=== PATIENT | male | born 1975 | race Caucasian/White ===

== ENCOUNTER 2018-11-09 14:21 | Outpatient (CLI) | payer MEDICAID, SELFPAY ==
[2018-11-10 12:40] LABS: SS-A Antibody 1.4 Units (<20); SS-B (La) Ab, IgG 2.1 Units (<20)
[2018-11-10 14:25] LABS: ANA Interpretation Negative (NEGAT)
== END 2018-11-09 14:41 ==
PROVIDERS: Visit Provider Dermatology
DX: R21 Rash and other nonspecific skin eruption (principal)
CPT/HCPCS: 36415; 86038; 86235

== ENCOUNTER 2020-08-09 04:51 | Outpatient (CLI) | payer MEDICAID, SELFPAY ==
--- NOTE | 2020-08-09 | DI.RAD_ITS ---
Exam(s) XR LUMBAR SPINE COMPLETE EXAM: XR LUMBAR SPINE COMPLETE CLINICAL HISTORY: LOW BACK PAIN, M54.5. TECHNIQUE: 2D digital imaging was performed. COMPARISON: No exams were available for comparison FINDINGS: There are 5 lumbar type vertebral bodies. There is normal alignment. There is no spondylolysis or s pondylolisthesis. The disc heights are well maintained. There are small endplate osteophytes from L 3-4 through L5-S1. There are degenerative changes of the facets at L4-5 and L5-S1. No acute fractur e or subluxation is seen. The bones are normally mineralized. IMPRESSION: Mild degenerative changes in the lumbar spine. DATA REPOSITORY: RADIATION DOSE DELIVERED:
== END 2020-08-09 05:11 ==
PROVIDERS: PCP Physician Assistant; Visit Provider Physician Assistant
DX: M54.5 Low back pain (principal); M47.897 Other spondylosis, lumbosacral region
CPT/HCPCS: 72110

== ENCOUNTER 2021-01-10 16:40 | Outpatient (REF) | payer MEDICAID, SELFPAY ==
[2021-01-10 19:27] LABS: HCT 40.8 % (40.0-50.0); HGB 13.6 g/dL (13.5-17.5); MCH 30.6 pg (27.0-33.0); MCHC 33.3 % (32.0-36.0); MCV 91.9 fL (80-95); MPV 12.3 fL (8.0-11.0); Platelet Count 236 10^3/uL (130-400); RBC 4.44 10^6/uL (4.36-5.78); RDW 13.7 % (11.8-14.1); RDW-SD 46.7 fL; WBC 12.38 10^3/uL (4.4-10.8)
[2021-01-10 19:40] LABS: ALT 35 U/L (16-63); AST 32 U/L (15-37); Alkaline Phosphatase 92 U/L (46-116); BUN 17 mg/dL (7-18); Bilirubin, Total 0.4 mg/dL (0.2-1.0); CREATININE 0.9 mg/dL (0.70-1.30); Calcium 9.1 mg/dL (8.5-10.1); Calculated LDL 82 mg/dL (<100); Chloride 103 mmol/L (98-107); Cholesterol 145 mg/dL (<200); Glucose 92 mg/dL (74-106); HDL Cholesterol 43 mg/dL (40-60); Sodium 137 mmol/L (136-145); Total Protein 7.1 g/dL (6.4-8.2); Triglyceride 102 mg/dL (<150)
== END 2021-01-10 16:41 | disposition home or self-care (01) ==
LOC: NCHCN 16:40
PROVIDERS: PCP Physician Assistant; Visit Provider Physician Assistant
DX: I10 Essential (primary) hypertension (principal)
CPT/HCPCS: 80053; 80061; 85027

== ENCOUNTER 2022-02-09 11:30 | Emergency (ER) | payer MEDICAID, SELFPAY ==
[2022-02-09 11:36] VITALS: BP 150/78; PULSE 79; RESP 18; TEMP 36.7; O2SAT 98
--- NOTE | 2022-02-09 12:15 | DI.CT_ITS ---
Exam(s) CT HEAD WO EXAM: CT HEAD WO CLINICAL HISTORY: headache. TECHNIQUE: Imaging Protocol: Axial computed tomography images with coronal and sagittal reformatted images were created and reviewed COMPARISON: CT FACIAL WITHOUT CONTRAST from 07/09/2017 FINDINGS: There are no skull fractures. There is no fluid in the visualized paranasal sinuses. There is no evidence of intracranial hemorrhage, mass effect, or shift of midline structures. There are no extra-axial fluid collections. The ventricles are not enlarged or shifted and there is no blo od within the ventricular system nor within the basal cisterns. There is no evidence of cerebellar tonsillar ectopia. IMPRESSION: No acute intracranial findings on this noninfused CT scan of the brain. RADIATION DOSE DELIVERED: 734.78mGy.cm Total DLP DATA REPOSITORY: All CT scans at this facility are submitted to the National Radiology Data Registry (NRDR) Dose Index Registry (DIR) with the [employer] (A[employer]). RADIATION OPTIMIZATION: All CT scans at this facility use at least one of these dose optimization te chniques: automated exposure control; mA and/or kV adjustment per patient size (includes targeted exa ms where dose is matched to clinical indication); or iterative reconstruction.
[2022-02-09] MEDS: SUMAtriptan 6 MG/0.5 ML VIAL SC (12:41)
--- NOTE | 2022-02-09 12:54 | ED.GENADUL_ITS ---
Discharge Plan Disposition Patient Disposition: HOME Condition: Stable Discharge Details Clinical Impression: Headache Primary Care Provider: John Holloway ED Provider: Marbella Rodriguez Home Meds and New Rx's Prescriptions: New prochlorperazine maleate [Compazine] 10 mg tablet 10 mg PO Q6H PRNQty: 10 0RF Rx Instructions: as needed for headache Continued buprenorphine-naloxone [Suboxone] 2-0.5 mg film 1 film sublingual UNKNOWN Discharge Instructions Instructions: General Headache (ED) Additional Instructions: Try taking your migraine medication should you develop headache, you may take the Reglan as needed for pain Tylenol and ibuprofen head ct within normal limits Follow-up with neurology, referral placed Return earlier should you have new or worsening complaint Referrals: John Holloway [Primary Care Provider] - 1 day Discharge Data Discharge Date/Time-TO BE ENTERED AT DEPARTURE: 02/09/22 14:06 Medical Decision Making Patient appears well, CT does not show evidence of acute abnormality, given subcutaneous Imitrex with complete resolution of headache Discharged home with ibuprofen and Tylenol Return precautions discussed Neurology referral supplied Neurologically intact with stable vitals at time of discharge Medical Records Medical records reviewed: Yes I reviewed the patient's medical records. Lab Data Lab results reviewed: Yes I reviewed the patient's lab results. HPI General Date/Time Provider Initiated Documentation: 02/09/22 11:46 . HPI Narrative: This 46-year-old male presents with report of headache for the past 3 days. Frontal. He has had history of headaches similar to this but never to this extent. He states usually they last approximately 24 hours. He took Excedrin Migraine which did not help with symptoms. He denies risk of carbon monoxide exposure. Denies fever chills. Denies strength or sensation change. Denies For fever. Denies any head trauma. Denies any vision change. He also complains of right-sided ache. Related Data Home Medications Medication Instructions Recorded Confirmed buprenorphine 2 mg-naloxone 0.5 mg 1 film sublingual UNKNOWN 02/09/22 02/09/22 sublingual film (Suboxone) prochlorperazine maleate 10 mg 10 mg PO Q6H PRN #10 tabs 02/09/22 tablet (Compazine) Previous Rx's Medication Instructions Recorded prochlorperazine maleate 10 mg 10 mg PO Q6H PRN #10 tabs 02/09/22 tablet (Compazine) Allergies Allergy/AdvReac Type Severity Reaction Status Date / Time Opioids - Morphine Analogues AdvReac Other (See Unverified 07/09/17 20:07 Comment) General Stated Complaint: Headache JOAQUIN: 3 Review of Systems All systems reviewed & are unremarkable except as noted in HPI and below PFSH All Active Problems (Updated 02/09/22 @ 13:43 by JAMIE Diaz) Headache (Acute) Social History Smoking/Tobacco Use Status: Current every day Tobacco Type: cigarettes Smoking risk assessment performed?: Yes Alcohol Intake: never Drug use: Never Substance use type: does not use Exam Const General: cooperative and comfortable Orientation: alert and oriented x3 Eyes Pupils: PERRL EOM: EOM intact bilaterally Neck Other: No carotid bruit No meningismus Resp Effort & Inspection: normal respiratory effort Auscultation: clear to auscultation bilaterally Cardio Rate: regular rate Rhythm: regular rhythm Neuro General: patient alert and patient oriented x3 Cranial Nerves: tongue midline Gait: normal gait Motor: strength 5/5 throughout Course Vital Signs Vital signs: Vital Signs Temperature 36.7 C 02/09/22 11:36 Pulse 79 02/09/22 11:36 Respiratory Rate 18 02/09/22 11:36 Blood Pressure 150/78 H 02/09/22 11:36 Pulse Oximetry 98 02/09/22 11:36 Temperature 36.7 C 02/09/22 11:36 Temperature Source Oral 02/09/22 11:36 Pulse 79 02/09/22 11:36 Respiratory Rate 18 02/09/22 11:36 Respiratory Effort Non-Labored 02/09/22 11:38 Blood Pressure 150/78 H 02/09/22 11:36 Blood Pressure Position Sitting 02/09/22 11:36 Pulse Oximetry 98 02/09/22 11:36 Oxygen Delivery Method Room Air 02/09/22 11:36 Oxygen Flow Rate 0 02/09/22 11:36 Pain Level 7 02/09/22 12:41
== END 2022-02-09 14:06 | disposition home or self-care (01) ==
PROVIDERS: Emergency Provider Physician Assistant; PCP Physician Assistant
DX: R51.9 Headache, unspecified (principal)
CPT/HCPCS: 96372; 99284; 70450; 99283

== ENCOUNTER 2022-10-02 09:50 | Day surgery (SDC) | payer OTHER, SELFPAY ==
[2022-10-02] VITALS (12 sets, daily range): BP systolic 74–137; BP diastolic 33–89; PULSE 64–83; RESP 12–21; TEMP 36.2–36.8; O2SAT 92–97; BMI 33.8
--- NOTE | 2022-10-02 07:20 | W.PM.DSUDISC ---
Date of service: 10/02/22 Time of Service: 15:00 Discharge Plan Disposition Patient Disposition: Home Discharge Details Attending Provider: Duncan Winchester Primary Care Provider: John Holloway Home Meds and New Rx's Prescriptions: New aspirin 81 mg tablet,delayed release (DR/EC) 81 mg PO DAILY 7 Days Qty: 7 0RF naproxen 250 mg tablet 250 - 500 mg PO BID PRNQty: 40 0RF Rx Instructions: take with a meal tramadol 50 mg tablet 50 mg PO Q6H PRN (Reason: severe pain) Qty: 12 0RF Continued acetaminophen 500 mg capsule 500 mg PO Q6H PRN Discontinued sumatriptan succinate [Imitrex] 50 mg tablet See Rx Instructions PO .COMPLEX Rx Instructions: take 1 tab at onset of headache; if no relief may repeat 1 tab after at least 2 hrs; max = 4 tabs/24 hr PO ibuprofen 800 mg tablet 800 mg PO TID Discharge Instructions Additional Instructions: Surgery: Left shoulder arthroscopy with biceps tenodesis, extensive debridement, and subacromial decompression. Partial articular supraspinatus rotator cuff tear. Activity: You should gradually increase range of motion motion and use of your shoulder. You may use your shoulder for all regular activities while protecting biceps repair. Avoid any weighted elbow flexion or resisted supination for 6-8 weeks. No heavy lifting, reaching overhead, or lifting away from body for approximately 2-3 months. You may use the sling whenever you are out of the house for a few weeks. At home it is best to remove the sling and rest the arm on a pillow at your side or support the operative side with your other hand. A physical therapy prescription will be sent electronically to start in about 3 weeks. Prescriptions: Aspirin 81 mg take 1 daily to prevent a blood clot for 7 days Naproxen 250 mg take 1-2 every 12 hours with a meal as needed for moderate pain Tramadol 50 mg take 1 every 6-8 hours as needed for severe pain You may use bktf-xfe-rtckked Tylenol (acetaminophen) as needed for mild pain. These pain medications may be taken all at once or in different combinations as needed. Also, recommend Colace (docusate) as a stool softener as surgery and pain medicine cause constipation. You may try veln-iqa-euwnboq diphenhydramine (Benadryl) 25-50 mg nightly as a sleep aid Dressings: Remove shoulder bandage after 3 days. Leave the sticky Steri-Strips in place until they fall off or remove them after you shower. Cover the incisions with Band-Aids or leave them open to air. You may shower after 5 days. Follow-up: 10-[address] Winchester You may take off the leg compression stockings this evening at home. You may also leave them on a few days longer if you have a history of leg swelling or edema. Let us know right away if you develop any redness, drainage, fevers, chest pain, or trouble breathing. Do not drink alcohol or drive for at least 24 hours after anesthesia. Please call the office during business hours with any questions or concerns. Discharge Orders Discharge Orders: Discharge Order (Routine); Ordered 10/02/22 Ordered By: Duncan Winchester DS: Diagnosis Discharge Diagnosis (1) Left rotator cuff tear: Status: Acute
--- NOTE | 2022-10-02 07:21 | ROE_ITS ---
Date of service: 10/02/22 Time of Service: 13:00 Operative Note Operative Note DATE OF PROCEDURE: 10/02/22 PRE-OP DIAGNOSIS: Left: 1. Rotator cuff tear 2. SLAP tear 3. ACJ arthritis 4. Impingement POST-OP DIAGNOSIS: same PROCEDURE: Left: 1. Arthroscopic distal clavicle excision, CPT# 42182. This involved arthroscopically exposing the underside of the acromioclavicular joint, smoothi ng out bone spurs, and removing a few millimeters of the distal clavicle so there was no bone left engaging the acromion. 2. Arthroscopic biceps tenodesis, CPT# 99123. This involved arthroscopically s uturing and reattaching the long head of the biceps tendon to the proximal humerus at the superior margin of the bicipital groove with a screw at the correct tension. 3. Extensive debridement, CPT# 71342. This involved using arthroscopic hand instruments, power instruments, and radiofrequency instruments to release the long head of the biceps tendon and debride areas of Mohit complex/[facility] L and po sterior labral tearing, SLAP tearing, rotator interval synovitis, partial articular supraspinatus tearing, and chondromalacia about the humeral head. 4. Subacromial decompression with partial acromioplasty, CPT# 96102. This involved using arthroscopic power instruments and a radiofrequency wand to complete a bursectomy and smooth the undersurface of the acromion. The assistant research scientist was medically required in order to help assist in techniques above, which require positioning the arm, holding the arthroscope, and manipulating multiple instruments and sutures at the same time. This cannot be done without the help of an experienced assistant research scientist. SURGEON: Duncan Winchester FUND CONTROLLER: Dominique Padilla ANESTHESIA TYPE: General LMA/ETT and Primary Nerve Block Refer to Anesthesia Record ESTIMATED BLOOD LOSS: 10 PATHOLOGY: none sent COMPLICATIONS: None Patient was transported to: PACU Patient's condition: stable Implants: Arthrex: 4.75mm SwiveLocks x 1 Indications: The patient was diagnosed with the above conditions and appropriately indicated for surgical intervention. Please see complete medical record for details. Findings: Exam under anesthesia: Moderately full range of motion, no instability Glenohumeral joint: Surgically intact Long has biceps tendon, but unstable biceps anchor which communicated with an obvious Mohit complex anteriorly and continued with posterior labral fraying tearing. Mild to moderate grade partial articular supraspinatus tearing without any significant footprint uncovering. Intact subscapularis. Mild central humeral head chondromalacia Subacromial space: Significant bursitis. Impinging undersurface distal clavicle hypertrophic on the rotator cuff and against the medial acromion. Mild undersurface acromial bone spurring. No bursal rotator cuff tear. Procedure Description: In the operating room, general anesthesia was induced. Bilateral shoulders were examined. The patient was positioned in the beachchair position. All bony prominences were well-padded. Preoperative antibiotics were administered. The shoulder was prepped and draped in the usual sterile fashion. The correct patient, procedure, and side of the procedure were all verified prior to incision. Starting through the posterior portal a standard complete diagnostic arthroscopy was performed of the glenohumeral joint including inspection of the long head of the biceps, anterior and superior labrum, subscapularis tendon, supraspinatus and infraspinatus tendons, and axillary recess. The glenoid and humeral head cartilage as well as the posterior labrum were inspected from an anterior viewing portal. Significant findings and interventions noted above. Of note, the area of high?signal abnormality on the MRI correlated with a relatively low?grade PASTA tear that did not probe deep into the tendon and did not leave any real amount of the greater tuberosity exposed. An all-arthroscopic suprapectoral biceps tenodesis was performed through an anterior portal using a Loop N Tack method with a SutureTape FiberLink cinched around and through the tendon. The biceps was tenotomized from the labrum and fixated with a suture anchor at the superior margin of the bicipital groove. The knotless repair suture was then shuttled around the biceps tendon stump and back through the anchor eyelet mechanism for additional security. Starting through the posterior portal, the arthroscope was directed into the subacromial space. A lateral 50 yard line lateral portal was created. A combination of power instruments and a radiofrequency ablator were used to emiile ride bursitis anteriorly, posteriorly, and laterally as well as expose and smooth bone spurring on the undersurface of the acromion. The coracoacromial ligament was partially released. The bursectomy was completed viewing laterally and working from posteriorly and the rotator cuff was thoroughly inspected with findings noted above. The anterior portal was redirected towards the undersurface of the AC joint. A shaver and electrocautery device were used to clear soft tissue from the undersurface of the AC joint. The distalmost few millimeters of the abnormal distal clavicle was then removed and smoothed. Care was taken to ensure that proper amount of bone was removed and there was no engaging bone left behind especially superiorly. The bursal rotator cuff especially supraspinatus was carefully examined. It demonstrated excellent trampoline and had no structural tearing. The shoulder was drained of arthroscopic fluid. All portal sites were copiously irrigated. These incisions were closed using 3-0 Monocryl in a buried fashion and then covered with Mastisol, Steri-Strips, Xeroform, dry gauze, and ABDs. The dressings were covered and secured with Medipore tape. The operative extremity was placed into a sling for immobilization. The patient awoke from anesthesia without complication and was transferred to the recovery room in a stable condition.
[2022-10-02] MEDS: Lactated Ringers 1,000 ML 30 ML IV (10:25)
--- NOTE | 2022-10-02 11:02 | W.ANESPRE ---
General Info Date of Service Date Performed: 10/02/22 Height: 6 ft Weight: 113.2 kg Body Mass Index (BMI): 33.8 Surgical Procedure: Operation Date: 10/02/22 12:40 Proposed Procedure Side Surgeon p Shoulder Rotator Cuff Arthroscopic w/Extensive Debridement, Biceps Tenodesis, Subacromial Decompression, Distal Clavicle Excision Left Duncan Winchester MD Meds Allergies and Home Medications Allergies Allergy/AdvReac Type Severity Reaction Status Date / Time penicillin V Allergy Severe Anaphylaxis Verified 10/02/22 10:10 Home Medication Medication Instructions Recorded acetaminophen 500 mg capsule 500 mg PO Q6H PRN 09/02/22 ibuprofen 800 mg tablet 800 mg PO TID 09/02/22 sumatriptan succinate 50 mg tablet See Rx Instructions PO .COMPLEX 09/02/22 (Imitrex) Current Visit Medications: Current Medications Generic Name Dose Route Start Last Admin Trade Name Freq PRN Reason Stop Dose Admin Ringer's Solution 1,000 mls @ 30 mls/hr 10/02/22 06:00 10/02/22 10:25 IV 10/31/22 23:59 30 mls/hr INFUSION ZULEMA Administration Cefazolin Sodium/Dextrose 2 gm in 50 mls @ 100 mls/hr 10/02/22 06:00 Ancef Duplex IVPB 10/31/22 23:59 PREOP ZULEMA IV Miscellaneous Supplies 1 each 10/02/22 06:00 Iv Access IV 10/31/22 23:59 DIRECTED ZULEMA Sodium Chloride 0 ml 10/02/22 06:00 Normal Saline Flush 10 Ml Syr IV 10/31/22 23:59 PRN PRN Sodium Chloride 0 ml 10/02/22 06:00 Normal Saline 10 Ml Vial IJ 10/31/22 23:59 DIRECTED PRN Sterile Water 0 ml 10/02/22 06:00 Water,Injection,Sterile 10 Ml Vial IJ 10/31/22 23:59 DIRECTED PRN Tramadol HCl 50 mg 10/02/22 07:19 Tramadol 50 Mg Tab PO 11/01/22 07:18 Q6H PRN PRN PFSH Active Problems Active Problems: Problem Status Onset Code Impingement syndrome of left shoulder M75.42 Arthritis of left acromioclavicular joint M19.012 SLAP lesion of left shoulder S43.432A Left rotator cuff tear M75.102 Opioid abuse, 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 Ganglion, left wrist M67.432 Hypertension I10 Medical History Medical History GERD (gastroesophageal reflux disease) Low back pain Migraines Nicotine dependence Tobacco Smoking/Tobacco Use Status: Current every day Tobacco Type: cigarettes Alcohol Alcohol Intake: never Substance Use Substance use: Current Sobriety Vital Signs and Lab Results Vital Signs Most Recent Vital Signs in EMR: Most Recent Vital Signs Temp Pulse Resp BP Pulse Ox 36.8 C 83 17 127/78 95 10/02/22 10:11 10/02/22 10:11 10/02/22 10:11 10/02/22 10:11 10/02/22 10:11 Lab Results Blood Type / Crossmatch: No Data to Display Complete Blood Count: No Data to Display Complete Metabolic Panel: No Data to Display Liver Function Panel: No Data to Display Coagulation Panel: No Data to Display Cardiac Panel: No Data to Display Arterial Blood Gas: No Data to Display Venous Blood Gas: No Data to Display Pancreas Panel: No Data to Display Thyroid Panel: No Data to Display Infectious Disease: No Data to Display Blood Cultures: No Data to Display Toxicology Panel: No Data to Display Anesthesia Assessment and Plan Anesthesia History Personal History: No History of Anesthesia Complications Family History: Family History Unknown Exercise Tolerance Exercise Tolerance: Metabolic Equivalents>4 Pertinent Negatives Pertinent Negatives: No Symptoms of GERD, No Major Cardiovascular Symptoms or Complaints and No Major Pulmonary Symptoms or Complaints Cardiac & Pulmonary Exam Cardiac Exam: Normal S1/S2 Heart Sounds Pulmonary Exam: Clear Bilateral Breath Sounds Implantable Cardiac Device Does patient have a Pacemaker or an ICD?: No Airway Exam Known Difficult Airway: No Mallampati Class: 2 Mouth Opening: Normal (> 3cm) Thyromental Distance: Greater than 3 cm Neck Range of Motion: Full ROM Neck Circumference: Normal Teeth Condition: Normal Dentition ASA Classification ASA Score: ASA 2 Emergency Case?: No NPO Status NPO Status: NPO Clears >2 hours, Solids >8 hours Anesthesia Plan Resuscitation Status: Full Code Anesthesia Technique: General Anesthesia Airway Planned: Endotracheal Tube Pain Management: Surgeon and patient request nerve block Monitors Used: Standard Monitors
[2022-10-02] MEDS: ceFAZolin 2 GM/50 ML BAG IVPB (12:24)
--- NOTE | 2022-10-02 13:49 | W.ANESNERVE ---
Nerve Block Single Injection Procedure Date and Time Date Performed: 10/02/22 Procedure Start: 12:05 Location Where Procedure Performed Procedure Location: Day Surgery Unit Reason Performed: Postoperative Analgesia Requesting Provider: Duncan Winchester Timeout Performed Timeout Performed: Yes Monitoring Used ECG, Blood Pressure, SpO2 and See EMR for corresponding vital signs Sterility Sterility: Hand Hygiene, Surgical Cap, Surgical Mask, Sterile Gloves and Chlorhexidine Sedation Given During Procedure Sedation Given (Indicate Dose Given): Versed IV Dose:: 2mg Patient Mental Status Patient Mental Status: Awake Nerve Block 1st Nerve Block: Laterality: Left Block Type: Supraclavicular Ultrasound Image Saved?: Yes Needle / Catheter Used: 100mm SonoPlex II Local Anesthetic Bolus (Indicate Dose Given): Lidocaine used for local infiltration of skin, Injected in 3-5ml increments after negative blood aspiration, Bupivacaine 0.5% Dose:: 10ml and Exparel Dose:: 10ml Additives (Indicate Dose Given): None Ultrasound: Sterile probe cover and gel used Nerve Stimulator: Supplement to Ultrasound use and No twitch or parasthesia noted < 0.5 mA Paresthesia: None Procedure Tolerated: No Complications and Patient tolerated well Procedure Outcome: Successful Procedure Comment: Attempted interscalene, however anatomy poorly visualized. Supra view much better. Performed By: Steven Delacruz
[2022-10-02] MEDS: EPINEPHrine 30 MG/30 ML VIAL (14:17)
[2022-10-02] MEDS: ePHEDrine 25 MG/5 ML Syringe IVP (14:42)
[2022-10-02] MEDS: HYDROmorphone 2 MG/ML SYR IVP ×3 (15:23→15:46)
--- NOTE | 2022-10-02 16:17 | W.ANESPOSTOP ---
Postoperative Evaluation Date, Time and Location Date Performed: 10/02/22 Time Performed: 16:17 Patient Location: Day Surgery Unit Vital Signs Most Recent Imported Vital Signs: Most Recent Vital Signs Temp Pulse Resp BP Pulse Ox 36.5 C 65 16 118/82 97 10/02/22 16:00 10/02/22 16:00 10/02/22 16:00 10/02/22 16:00 10/02/22 16:00 Pain Score Most Recent Pain Score: Most Recent Pain Score Pain Level 1 10/02/22 16:00 Assessment Mental Status: Awake (Alert & Oriented to Patient Baseline) Airway and Respiratory Function: Patent airway with normal (patient baseline) respiratory exam Cardiovascular Function: Hemodynamically Stable Hydration Status: Adequately Hydrated Nausea & Vomiting: No Nausea or Vomiting Pain: Pain is tolerable per patient Peripheral Nerve Block: Regional nerve block not resolved at time of post operative discharge
== END 2022-10-02 17:14 | disposition home or self-care (01) ==
PROVIDERS: PCP Physician Assistant; Visit Provider Student in an Organized Health Care Education/Training Program
PROC: (CPT 29827; principal; 2022-10-02 12:30)
DX: M75.102 Unspecified rotator cuff tear or rupture of left shoulder, not specified as traumatic (principal); M75.42 Impingement syndrome of left shoulder; M19.012 Primary osteoarthritis, left shoulder; M24.112 Other articular cartilage disorders, left shoulder
CPT/HCPCS: 29828; 29823; 29826; 29824; 76942; J0690; J1100; J1170; J1885; J2250; J2405; J2704

== ENCOUNTER 2023-05-11 11:46 | Outpatient (CLI) | payer OTHER, SELFPAY ==
--- NOTE | 2023-05-11 09:35 | DI.RAD_ITS ---
Exam(s) XR SHOULDER LT COMPLETE 2+V EXAM: XR SHOULDER LT COMPLETE 2+V CLINICAL HISTORY: pain. TECHNIQUE: 2D digital imaging was 2 views. COMPARISON: MR MRI LEFT JNT UPPER W/O CONTRAST from 07/25/2022 FINDINGS: BONES: No acute fracture is present. No bony destructive lesion is seen. JOINTS: No dislocation present. Mild degenerative changes acromioclavicular joint. Mild inferior sp urring. Glenohumeral joint space is maintained. SOFT TISSUE: Normal. IMPRESSION: Degenerative changes of the AC joint. DATA REPOSITORY: RADIATION DOSE DELIVERED:
== END 2023-05-11 11:47 | disposition home or self-care (01) ==
LOC: DIORS 11:46
PROVIDERS: PCP Physician Assistant; Visit Provider Physician Assistant
DX: M19.012 Primary osteoarthritis, left shoulder (principal)
CPT/HCPCS: 73030

== ENCOUNTER → 2023-06-16 01:41 | Outpatient (CLI) | payer OTHER, SELFPAY ==
--- NOTE | 2023-06-16 11:35 | DI.MRI_ITS ---
Exam(s) MR UPPER JOINT LT WO EXAM: MR UPPER JOINT LT WO CLINICAL HISTORY: L SHOULDER PAIN,IMPINGEMENT SYNDROME,ARTHRITIS,SLAP LESION,LT ROTATOR CUFF. TECHNIQUE: Multiplanar multisequence MRI was performed. COMPARISON: MR MRI LEFT JNT UPPER W/O CONTRAST from 07/25/2022 CR XR SHOULDER LT COMPLETE 2+V from 05/11/2023 FINDINGS: BONES: There is no fracture or contusion pattern. JOINTS: There are moderate degenerative changes seen at the acromioclavicular joint. There also dege nerative changes seen at the glenohumeral joint with cartilage loss present. TENDONS: Supraspinatus: There is supraspinatus tendinosis. There is hyperintense signal seen on the articular surface of the supraspinatus tendon at its insertion site consistent with a partial tear. Infraspinatus: There is tendinosis of the infraspinatus noted. There is mild hyperintense signal see n at the insertion site of the infraspinatus tendon suggesting a partial tear. This is best apprecia elise on the sagittal images. Subscapularis: There is subscapularis tendinosis. Teres Minor: Unremarkable. Biceps and [place]: There appears to be a tenodesis of the biceps tendon. There is mild hyperintense signal again seen in the rotator interval. MUSCLES: Unremarkable. GLENOID LABRUM: Unremarkable on this noncontrast examination. SOFT TISSUES: Unremarkable. LIGAMENTS: Unremarkable. OTHER: There is a small amount of fluid seen in the subacromial subdeltoid bursa suggesting bursitis. IMPRESSION: 1. Findings suspicious for partial tears involving the infraspinatus and supraspinatus tendons near t heir insertion sites. 2. Findings suggesting biceps tenodesis. Please correlate with patient's surgical history. 3. Persistent mild inflammation seen in the region of the rotator interval. 4. Subscapularis tendinosis. 5. Degenerative changes in the shoulder. 6. Subacromial subdeltoid bursitis. DATA REPOSITORY:
== END ==
PROVIDERS: PCP Physician Assistant; Visit Provider Student in an Organized Health Care Education/Training Program
DX: S43.432A Superior glenoid labrum lesion of left shoulder, initial encounter; X58.XXXA Exposure to other specified factors, initial encounter
CPT/HCPCS: 73221

== ENCOUNTER 2024-12-14 09:37 | Outpatient (CLI) | payer OTHER, SELFPAY ==
[2024-12-14 08:41] LABS: HCT 42.6 % (40.0-50.0); HGB 14.7 g/dL (13.5-17.5); MCH 30.8 pg (27.0-33.0); MCHC 34.5 % (32.0-36.0); MCV 89 fL (80-95); MPV 11.0 fL (8.0-11.0); Platelet Count 226 10^3/uL (130-400); RBC 4.77 10^6/uL (4.36-5.78); RDW 13.2 % (11.8-14.1); RDW-SD 43.5 fL; WBC 5.42 10^3/uL (4.4-10.8)
[2024-12-14 09:20] LABS: ALT 69 U/L (16-63); AST 39 U/L (15-37); Albumin 3.9 g/dL (3.4-5.0); Alkaline Phosphatase 84 U/L (46-116); Anion Gap 5.7 mmol/L (3-11); BUN 12 mg/dL (7-18); Bilirubin, Total 0.5 mg/dL (0.2-1.0); CO2 29.3 mmol/L (21.0-32.0); Calcium 9.0 mg/dL (8.5-10.1); Calculated LDL 59 mg/dL (<100); Chloride 104 mmol/L (98-107); Cholesterol 115 mg/dL (<200); Estimated GFR 93.42 (mL/min/1.73m2); Ferritin 227 ng/mL (26-388); Glucose 113 mg/dL (74-106); HDL Cholesterol 39 mg/dL (>or=40); Potassium 4.6 mmol/L (3.5-5.1); Sodium 139 mmol/L (136-145); Total Protein 7.4 g/dL (6.4-8.2); Triglyceride 87 mg/dL (<150)
[2024-12-14 09:50] LABS: Iron 103 ug/dL (65-175); Total Iron Binding Capacity 297 ug/dL (250-450); Transferrin Sat 35 % (20-55)
== END 2024-12-14 09:38 | disposition home or self-care (01) ==
LOC: LBO 09:37
PROVIDERS: PCP Physician Assistant; Visit Provider Physician Assistant
DX: R53.83 Other fatigue (principal); I10 Essential (primary) hypertension; G25.81 Restless legs syndrome
CPT/HCPCS: 36415; 80053; 80061; 84403; 85027; 82728; 83540; 83550